=== PATIENT | male | born 1940 | race Caucasian/White ===

== ENCOUNTER → 2017-05-14 | Outpatient (CLI) | payer MEDICARE, OTHER ==
[2015-07-05 08:50] VITALS: BP 118/87
[~2017-05-14] MED LIST: ASPI-630 PO; ATOR20TA PO; CETI10TA22 PO; FISH12002 PO; LEVE500T56 PO; MULT1TAB52 PO; OMEG1CAP6 PO
--- NOTE | 2017-05-14 15:06 | CARD ---
MR#: [id number] Date of Study: 05/14/2017 Ordering Physician: JAMAL COBIAN, Referring Physician: JAMAL COBIAN, Tech: JOSHUA Vasquez APPROVED REPORT EXAM: Two-dimensional and M-mode echocardiogram with Doppler and color Doppler. Other Information Quality : Average INDICATION Carotid Artery Hypersensitivity 2D DIMENSIONS Left Atrium(2D)4.9 (1.6-4.0cm)IVSd0.6 (0.7-1.1cm) Aortic Root(2D)3.2 (2.0-3.7cm)LVDd5.0 (3.9-5.9cm) LVOT Diameter2.3 (1.8-2.4cm)PWd0.6 (0.7-1.1cm) RVOT Diameter0.0 cmLVDs2.8 (2.5-4.0cm) FS (%) 28.0 %LVEF(%)60.0 (>50%) Aortic Valve AoV Peak Baljinder.91.3cm/Manisha Peak GR.3.3mmHg Mitral Valve MV E Rssywmkl28.7cm/sMV A Qetdrjjn73.5cm/s E/A Ratio0.8 Tricuspid Valve TR P. Ngwqsvrs622av/sRAP LLELSBZP6gnVo TR Peak Gr.85eyTrARGU56ndNs LEFT VENTRICLE The left ventricle is normal size. There is normal left ventricular wall thickness. The left ventricu lar systolic function is normal. The Ejection Fraction is 50-55%. There is normal LV segmental wall m otion. Transmitral Doppler flow pattern is Grade I-abnormal relaxation pattern. RIGHT VENTRICLE The right ventricle is normal size. There is normal right ventricular wall thickness. The right ventr icular systolic function is normal. There is a pacemaker lead in the right ventricle. ATRIA The left atrium is mildly dilated. The right atrium is mildly dilated. There is a acemaker lead seen in the right atrium. The interatrial septum is intact with no evidence for an atrial septal defect or patent foramen ovale as noted on 2-D or Doppler imaging. AORTIC VALVE The aortic valve is trileaflet. Doppler and Color Flow revealed no significant aortic regurgitation. There is no significant aortic valvular stenosis. MITRAL VALVE The mitral valve is normal in structure and function. There is no mitral valve stenosis. Doppler and Color Flow revealed no mitral valve regurgitation noted. TRICUSPID VALVE Doppler and Color Flow revealed mild tricuspid regurgitation. There is no tricuspid valve stenosis. PULMONIC VALVE The pulmonic valve is not well visualized. Doppler and Color Flow revealed mild pulmonic valvular reg urgitation. There is a trace of coronary artery flow. There is no pulmonic valvular stenosis. GREAT VESSELS The aortic root is normal in size. There are limited subcostal views. Not able to see the IVC. PERICARDIAL EFFUSION There is no pleural effusion. There is no evidence of significant pericardial effusion. Critical Notification Critical Value: No <Conclusion> The left ventricular systolic function is normal. The Ejection Fraction is 50-55%. There is normal LV segmental wall motion. Transmitral Doppler flow pattern is Grade I-abnormal relaxation pattern. There is a pacemaker lead in the right atrium and right ventricle. Doppler and Color Flow revealed mild tricuspid regurgitation. There is no evidence of significant pericardial effusion. Signed by : Jamal Cobian, Electronically Approved : 05/14/2017 15:05:58
== END | disposition home or self-care (01) ==
LOC: ECHO 08:42
PROVIDERS: ATTEND Internal Medicine Cardiovascular Disease
DX: G90.01 Carotid sinus syncope (principal); I36.1 Nonrheumatic tricuspid (valve) insufficiency; I10 Essential (primary) hypertension; E78.5 Hyperlipidemia, unspecified; K21.9 Gastro-esophageal reflux disease without esophagitis; Z95.0 Presence of cardiac pacemaker
CPT/HCPCS: 93306

== ENCOUNTER → 2018-06-17 | Outpatient (CLI) | payer MEDICARE, OTHER ==
[2015-07-05 08:50] VITALS: BP 118/87
--- NOTE | 2018-06-17 10:27 | CARD ---
MR#: [id number] Date of Study: 06/17/2018 Ordering Physician: JAMAL GANDARA, Referring Physician: Meena PERDOMO: Genet Conley RDCS APPROVED REPORT EXAM: Two-dimensional and M-mode echocardiogram with Doppler and color Doppler. Other Information Quality : Good INDICATION Carotid Hypersensitivity Surgery/Intervention Pacemaker: Date: 11/2013 2D DIMENSIONS RVDd2.8 (2.9-3.5cm)Left Atrium(2D)4.1 (1.6-4.0cm) IVSd0.8 (0.7-1.1cm)Aortic Root(2D)3.4 (2.0-3.7cm) LVDd4.4 (3.9-5.9cm)LVOT Diameter2.1 (1.8-2.4cm) PWd1.0 (0.7-1.1cm)LVDs3.1 (2.5-4.0cm) FS (%) 28.6 %SV47.6 ml LVEF(%)55.3 (>50%) Aortic Valve AoV Peak Baljinder.103.6cm/sAoV VTI17.0cm AO Peak GR.4.3mmHgLVOT Peak Baljinder.101.8cm/s LVOT VTI 21.00cmAO Mean GR.2mmHg LOW (VMAX)3.42ud9SVI (VTI)4.08cm2 Mitral Valve MV E Yygezavx97.9cm/sMV DECEL PTXE610ei MV A Tnxgtnnj85.7cm/sE/A Ratio0.6 Tricuspid Valve TR P. Gtpfrxuv321oq/sRAP HPUGWJYS4mvFb TR Peak Gr.56hzUwAHZQ14eqCf Pulmonary Vein S1 Cjjohbfn52.1cm/sD2 Axxeftns64.0cm/s LEFT VENTRICLE The left ventricle is normal size. There is normal left ventricular wall thickness. Left ventricle sy stolic function is normal. The Ejection Fraction is 50-55%. Apical motion consistent with pacemaker a ctivation. Transmitral Doppler flow pattern is Grade I-abnormal relaxation pattern. RIGHT VENTRICLE The right ventricle is normal size. The right ventricular systolic function is normal. There is a pac emaker lead in the right ventricle. ATRIA The left atrium is mildly dilated. The right atrium size is normal. A pacemaker is seen in the right atrium consistent with history. The interatrial septum is intact with no evidence for an atrial septa l defect or patent foramen ovale as noted on 2-D or Doppler imaging. AORTIC VALVE The aortic valve is calcified but opens well. Doppler and Color Flow revealed no significant aortic r egurgitation. There is no significant aortic valvular stenosis. MITRAL VALVE The mitral valve is calcified but opens well. There is no evidence of mitral valve prolapse. There is no mitral valve stenosis. Doppler and Color-flow revealed trace mitral regurgitation. TRICUSPID VALVE The tricuspid valve is normal in structure and function. Doppler and Color Flow revealed mild tricusp id regurgitation. There is moderate pulmonary hypertension. The PA pressure was estimated at 43 mmHg. There is no tricuspid valve stenosis. PULMONIC VALVE The pulmonic valve is not well visualized. Doppler and Color Flow revealed mild pulmonic valvular reg urgitation. There is no pulmonic valvular stenosis. GREAT VESSELS The aortic root is normal in size. The ascending aorta is mildly dilated at 3.8 cm. The IVC is normal in size and collapses >50% with inspiration. PERICARDIAL EFFUSION There is no evidence of significant pericardial effusion. Critical Notification Critical Value: No <Conclusion> Left ventricle systolic function is normal. The Ejection Fraction is 50-55%. Transmitral Doppler flow pattern is Grade I-abnormal relaxation pattern. There is a pacemaker lead in the right ventricle. Trace mitral regurgitation. Mild tricuspid regurgitation. The PA pressure was estimated at 43 mmHg. There is no evidence of significant pericardial effusion. Signed by : Jamal Gandara, Electronically Approved : 06/17/2018 10:27:09
== END | disposition home or self-care (01) ==
LOC: ECHO 09:39
PROVIDERS: ATTEND Internal Medicine Cardiovascular Disease
DX: I08.8 Other rheumatic multiple valve diseases (principal); I27.20 Pulmonary hypertension, unspecified; Z95.0 Presence of cardiac pacemaker
CPT/HCPCS: 93306

== ENCOUNTER → 2019-08-04 | Outpatient (CLI) | payer MEDICARE, OTHER ==
[2015-07-05 08:50] VITALS: BP 118/87
[~2019-08-04] MED LIST changes: -CETI10TA22 PO; +CETI10TA24 PO; +MULT-445 PO; -MULT1TAB52 PO
--- NOTE | 2019-08-04 14:36 | CARD ---
MR#: [id number] Date of Study: 08/04/2019 Ordering Physician: JAMAL GANDARA, Referring Physician: JAMAL GANDARA Tech: Genet Conley RDCS APPROVED REPORT EXAM: Two-dimensional and M-mode echocardiogram with Doppler and color Doppler. Other Information Quality : Good INDICATION Carotid Hypersensitivity Surgery/Intervention Pacemaker: Date: 11/13/2013 2D DIMENSIONS RVDd2.8 (2.9-3.5cm)Left Atrium(2D)4.3 (1.6-4.0cm) IVSd0.7 (0.7-1.1cm)Aortic Root(2D)3.3 (2.0-3.7cm) LVDd5.2 (3.9-5.9cm)LVOT Diameter2.3 (1.8-2.4cm) PWd0.9 (0.7-1.1cm)LVDs3.7 (2.5-4.0cm) FS (%) 28.6 %SV71.6 ml LVEF(%)54.7 (>50%) Aortic Valve AoV Peak Baljinder.99.8cm/sAoV VTI16.1cm AO Peak GR.4.0mmHgLVOT Peak Baljinder.90.5cm/s LVOT VTI 16.59cmAO Mean GR.2mmHg LOW (VMAX)3.73cr5HHI (VTI)4.14cm2 Mitral Valve MV E Lljsxnhs11.7cm/sMV DECEL YNCV641mg MV A Apxhcjrc49.2cm/sE/A Ratio0.6 Tricuspid Valve TR P. Ialubmup344kf/sRAP AJMAYKHS1vzGs TR Peak Gr.55joRaOHTJ09koOw Pulmonary Vein S1 Yphkkijw27.4cm/sD2 Cccrctlh88.3cm/s LEFT VENTRICLE The left ventricle is normal size. There is normal left ventricular wall thickness. The left ventricu lar systolic function is normal and the ejection fraction is within normal range. The Ejection Fracti on is 55-60%. There is normal LV segmental wall motion. Transmitral Doppler flow pattern is Grade I-a bnormal relaxation pattern. RIGHT VENTRICLE The right ventricle is normal size. The right ventricular systolic function is normal. There is a pac emaker lead in the right ventricle. ATRIA The left atrium is mildly dilated. The right atrium size is normal. A pacemaker is seen in the right atrium consistent with history. The interatrial septum is intact with no evidence for an atrial septa l defect or patent foramen ovale as noted on 2-D or Doppler imaging. AORTIC VALVE The aortic valve is calcified but opens well. Doppler and Color Flow revealed no significant aortic r egurgitation. There is no significant aortic valvular stenosis. MITRAL VALVE The mitral valve is calcified but opens well. There is no evidence of mitral valve prolapse. There is no mitral valve stenosis. Doppler and Color-flow revealed trace to mild mitral regurgitation. TRICUSPID VALVE The tricuspid valve is normal in structure and function. Doppler and Color Flow revealed trace tricus pid regurgitation. There is mild pulmonary hypertension. The PA pressure was estimated at 34 mmHg. Th ere is no tricuspid valve stenosis. PULMONIC VALVE Doppler and Color Flow revealed mild pulmonic valvular regurgitation. There is no pulmonic valvular s tenosis. GREAT VESSELS The aortic root is normal in size. The ascending aorta is mildly dilated at 3.8 cm. The IVC is normal in size and collapses >50% with inspiration. PERICARDIAL EFFUSION There is no evidence of significant pericardial effusion. Critical Notification Critical Value: No <Conclusion> The left ventricular systolic function is normal and the ejection fraction is within normal range. Th e Ejection Fraction is 55-60%. There is normal LV segmental wall motion. There is a pacemaker lead in the right ventricle. Doppler and Color Flow revealed trace tricuspid regurgitation. There is mild pulmonary hypertension. The PA pressure was estimated at 34 mmHg. The ascending aorta is mildly dilated at 3.8 cm. Signed by : Anam Augustin, Electronically Approved : 08/04/2019 14:36:34
== END | disposition home or self-care (01) ==
LOC: ECHO 13:46
PROVIDERS: ATTEND Internal Medicine Cardiovascular Disease
DX: I08.8 Other rheumatic multiple valve diseases (principal); I27.20 Pulmonary hypertension, unspecified; G90.01 Carotid sinus syncope
CPT/HCPCS: 93306

== ENCOUNTER → 2020-09-13 | Outpatient (CLI) | payer MEDICARE, OTHER ==
[2015-07-05 08:50] VITALS: BP 118/87
[~2020-09-13] MED LIST changes: -CETI10TA24 PO; +CETI10TA74 PO
--- NOTE | 2020-09-13 17:52 | CARD ---
MR#: [id number] Date of Study: 09/13/2020 Ordering Physician: JAMAL GANDARA, Referring Physician: Meena PERDOMO: Mo Collins RUST APPROVED REPORT EXAM: Two-dimensional and M-mode echocardiogram with Doppler and color Doppler. Other Information Quality : GoodHR: 90bpm Rhythm : NSR INDICATION Hypertension/HCVD Surgery/Intervention Pacemaker: 2D DIMENSIONS Left Atrium(2D)4.5 (1.6-4.0cm)IVSd0.8 (0.7-1.1cm) Aortic Root(2D)3.6 (2.0-3.7cm)LVDd5.0 (3.9-5.9cm) LVOT Diameter2.2 (1.8-2.4cm)PWd0.9 (0.7-1.1cm) LVDs2.8 (2.5-4.0cm)FS (%) 44.3 % SV88.8 mlLVEF(%)75.4 (>50%) Aortic Valve AoV Peak Baljinder.100.8cm/sAoV VTI18.8cm AO Peak GR.4.1mmHgLVOT Peak Baljinder.95.3cm/s LVOT VTI 17.93cmAO Mean GR.2mmHg LOW (VMAX)3.75nk6ZJC (VTI)3.67cm2 Mitral Valve MV E Jtklcxwg61.8cm/sMV E Peak Gr.3mmHg MV DECEL WTQM955acLE A Fppkmnce54.1cm/s MV E Mean Gr.1mmHgE/A Ratio0.5 Pulmonary Valve PV Peak Wgykthww862.5cm/sPV Peak Grad.5mmHg Tricuspid Valve TR P. Rsujklvy074zx/sTR Peak Gr.24mmHg LEFT VENTRICLE The left ventricle is normal size. There is normal left ventricular wall thickness. The left ventricu lar systolic function is normal and the ejection fraction is within normal range. EF 55% There is nor mal LV segmental wall motion. Transmitral Doppler flow pattern is Grade I-abnormal relaxation pattern . No left ventricle thrombus noted on this study. There is no ventricular septal defect visualized. T here is no left ventricular aneurysm. There is no mass noted in the left ventricle. RIGHT VENTRICLE The right ventricle is normal size. There is normal right ventricular wall thickness. The right ventr icular systolic function is normal. ATRIA The left atrium is mildly dilated. The right atrium size is normal. The interatrial septum is intact with no evidence for an atrial septal defect or patent foramen ovale as noted on 2-D or Doppler imagi ng. AORTIC VALVE The aortic valve is normal in structure and function. Doppler and Color Flow revealed no significant aortic regurgitation. There is no significant aortic valvular stenosis. There is no aortic valvular v egetation. MITRAL VALVE The mitral valve is normal in structure and function. There is no evidence of mitral valve prolapse. There is no mitral valve stenosis. Doppler and Color-flow revealed trace mitral regurgitation. TRICUSPID VALVE The tricuspid valve is normal in structure and function. Doppler and Color Flow revealed trace to mil d tricuspid regurgitation. RVSP 22 mm Hg. There is no tricuspid valve prolapse or vegetation. There i s no tricuspid valve stenosis. PULMONIC VALVE Doppler and Color Flow revealed no pulmonic valvular regurgitation. There is no pulmonic valvular cristina nosis. GREAT VESSELS The aortic root is normal in size. The ascending aorta is normal in size. The pulmonary artery is nor mal. The IVC is normal in size and collapses >50% with inspiration. PERICARDIAL EFFUSION There is no pleural effusion. There is no evidence of significant pericardial effusion. Critical Notification Critical Value: No <Conclusion> The left ventricular systolic function is normal and the ejection fraction is within normal range. EF 55% There is normal LV segmental wall motion. Signed by : Anam Augustin, Electronically Approved : 09/13/2020 17:51:35
== END ==
LOC: ECHO 09:28
PROVIDERS: ATTEND Internal Medicine Cardiovascular Disease
DX: I36.1 Nonrheumatic tricuspid (valve) insufficiency (principal); G90.01 Carotid sinus syncope
CPT/HCPCS: 93306

== ENCOUNTER → 2021-06-06 | Outpatient (CLI) | payer MEDICARE, OTHER ==
[2015-07-05 08:50] VITALS: BP 118/87
[~2021-06-06] MED LIST changes: +REGADENOSON 0.4 MG/5 ML DISP.SYRIN. IV ONE
--- NOTE | 2021-06-06 17:35 | RAD ---
MR#: [id number] Date of Study: 06/06/2021 Ordering Physician: JAMAL COBIAN Referring Physician: SAUD PERDOMO Tech: RT Eddie Strong) (N) APPROVED REPORT Test Type: Pharmacological Stress Nurse/Tech: RT Ligia (Larry) (N) Test Indications: coronary artery hypersensitivity Cardiac History: pacemaker Medications: see EHR Medical History: seizure 7 years ago Resting ECG: SR Resting Heart Rate: 67 bpm Resting Blood Pressure: 129/74mmHg Pretest Chest Pain: None Nurse/Tech Notes Consent: The procedure was explained to the patient in lay terms. Informed consent was witnessed. Sarmad eout was entered into [employer] (formerly [employer]). History and Stress Test performed by RT Ligia (Larry) (N) Pharm. Details Pharmacologic stress testing was performed using 0.4mg per 5ml of regadenoson given intravenously ove r 7-10 seconds. POST EXERCISE Reason for Termination: Infusion complete Max HR: 113 bpm Max Blood Pressure: 125/71mmHg Chest Pain: No. Arrhythmia: No. ST Change: No. INTERPRETATION Stress EKG Conclusion: Baseline EKG showed sinus rhythm. No ischemic changes at peak stress. No arr hythmias. Imaging Protocol IMAGE PROTOCOL: Rest Tc-99m/stress Tc-99m 1 day Rest: Stress: Viability: Radiopharm.Tc99m QpcolypxnXx84w Sestamibi Dose10.5mCi 33mCi Duration 15min. 10min. Img Date 06/06/2021 06/06/2021 Inj-Img Krfq86swg. 90min. Rest Admin Site:IV - Right AntecubitalAdministrator: RT Ligia (Larry)(N) Stress Admin Site: IV - Right AntecubitalAdministrator: RT Eddie Strong)(N) STRESS DATA End Diast. Vol.88.0mlAv. Heart Rate75.0bpm End Syst. Vol.24.0mlCO Index BSA0.0L/min Myocardial Obvz123.0gEject. Cvjvmshl35.0% Stress Rates Pk. Fill Rate2.67EDV/secLVtime Pk. Fill 190.25msec Pk. Empty Rate4.64ESV/secLVtime Pk. Lhbrs787.92msec 1/3 Pk. Fill0.67EDV/sec Stress Scores Regional WT0.00Summed WT0.00 Regional WM0.00Summed WM0.00 Study quality was good. Left Ventricular size was Normal at Rest and Stress. Lung uptake was . Left Ventricular ejection fraction is 73%. The rest and stress images show normal perfusion, normal contraction and thickening. LV Perf. Quant 17 Seg. SSS1.00 17 Seg. SRS14.00 17 Seg. SDS0.00 Stress Defect Extent (% LAD)0.00Rest Defect Extent (% LAD)1.30Rev. Defect Extent (% LAD)0.00 Stress Defect Extent (% LCX) 12.50Rest Defect Extent (% LCX)30.00Rev. Defect Extent (% LCX)0.00 Stress Defect Extent (% RCA)0.00Rest Defect Extent (% RCA)57.80Rev. Defect Extent (% RCA)0.00 Stress Defect Extent (% EMEKA)2.20Rest Defect Extent (% EMEKA)24.30Rev. Defect Extent (% EMEKA)0.00 Conclusion 1. Regadenoson cardioisotope stress test did not show any evidence of ischemia or infarct. 2. Normal left ventricular systolic function with ejection fraction calculated at 73%. 3. Low risk for cardiac events. Signed by : Jamal Cobian, Electronically Approved : 06/06/2021 17:35:32
== END ==
LOC: NM 08:18
PROVIDERS: ATTEND Internal Medicine Cardiovascular Disease
DX: G90.01 Carotid sinus syncope (principal)
CPT/HCPCS: 78452; 93017; A9500; J2785